=== PATIENT | female | born 1935 | race Two or more races ===

== ENCOUNTER 2023-03-23 19:23 | Emergency (ER) | payer OTHER, MEDICAID ==
[~2023-03-23] VITALS: Ht 152.4 cm; Wt 63.6 kg
[~2023-03-23 19:23] MED LIST: ATOR40TA28 PO; CALC-910 PO; GABA-1181 PO; MELA3TAB89 PO; METF-1211 PO; METO50 PO; MULT-660 PO; NITR0.4T52 SL; RIVA20TA PO; SERT-158 PO; SIMV-259 PO
[2023-03-23 19:52] LABS: BASOPHILS % (AUTO) 0.6 % (0.0-2.0); EOSINOPHILS % (AUTO) 3.1 % (1.0-6.0); HEMATOCRIT 41.3 % (36-46); HEMOGLOBIN 13.6 g/dL (12.0-16.0); LYMPHOCYTES % (AUTO) 22.5 % (22.0-44.0); MEAN CORPUSCULAR HEMOGLOBIN 31.3 pg (26.0-34.0); MEAN CORPUSCULAR HGB CONC 32.8 G/dL (31.0-37.0); MEAN CORPUSCULAR VOLUME 95 fL (80-100); MONOCYTES # (AUTO) 0.6 K/uL (0.1-1.0); MONOCYTES % (AUTO) 13.2 % (2.0-9.0); NEUTROPHILS # (AUTO) 2.8 K/uL (1.8-7.7); NEUTROPHILS % (AUTO) 60.6 % (40.0-70.0); PLATELET COUNT (AUTO) 192 K/uL (150-450); RED BLOOD CELL COUNT(AUTO) 4.34 MIL/uL (4.00-5.20); WHITE BLOOD COUNT (AUTO) 4.6 K/uL (4.5-11.0)
[2023-03-23 20:08] LABS: CALCIUM, TOTAL 9.3 mg/dL (8.8-10.5); CREATININE 1.03 mg/dL (0.60-1.30); POTASSIUM 4.5 mmol/L (3.5-5.1)
[2023-03-23 20:13] LABS: ALBUMIN 3.1 g/dL (3.4-5.0); BILIRUBIN,TOTAL 0.4 mg/dL (0.1-1.0); TOTAL PROTEIN, SERUM 7.4 g/dL (6.4-8.2)
[2023-03-23] MEDS ORDERED: FAMOTIDINE 20 MG/2 ML VIAL IVP ONE (20:15)
[2023-03-23] MEDS ORDERED: ACETAMINOPHEN 500 MG TABLET PO ONE (20:15)
[2023-03-23] MEDS ORDERED: ONDANSETRON HCL 4 MG/2 ML VIAL IVP ONE (20:15)
[2023-03-23 20:16] LABS: TROPONIN I-HIGH SENSITIVITY 15 ng/L (<51)
[2023-03-23] MEDS ORDERED: IOHEXOL 350 MG/ML 100 ML VIAL ONE (21:00)
[2023-03-23] MEDS ORDERED: SODIUM CHLORIDE 0.9% 100 ML ONE (21:00)
[2023-03-23 22:00] LABS: APPEARANCE,URINE CLEAR (CLEAR); BILIRUBIN,URINE NEGATIVE (NEGATIVE); COLOR,URINE YELLOW (YELLOW); GLUCOSE, URINE (UA) NEGATIVE (NEGATIVE); KETONES,URINE NEGATIVE (NEGATIVE); LEUKOCYTE ESTERASE ,URINE TRACE (NEGATIVE); NITRATE,URINE NEGATIVE (NEGATIVE); OCCULT BLOOD,URINE SMALL (NEGATIVE); PROTEIN,URINE 30-70 mg/dL (NEGATIVE); SPECIFIC GRAVITIY, URINE 1.026 (1.003-1.030); UROBILINOGEN,URINE <=1.0 mg/dL (<=1.0)
[2023-03-23 22:30] VITALS: BP 134/74; PULSE 74; RESP 18; TEMP 97.3
[2023-03-23 22:31] LABS: CALCIUM PHOSPHATE CRYSTALS,UR Few /LPF (None Seen)
[2023-03-23] MEDS ORDERED: CEPH-558 PO (22:32)
[2023-03-23 22:33] LABS: BACTERIA,URINE None Seen /HPF (None Seen); WBC,URINE 0-2 /HPF (0-5)
[2023-03-23] MEDS ORDERED: CEPHALEXIN MONOHYDRATE 500 MG CAPSULE PO ONE (22:45)
== END 2023-03-23 23:34 | disposition home or self-care (01) ==
LOC: EMS 19:25
DX: N39.0 Urinary tract infection, site not specified (principal); R10.31 Right lower quadrant pain; I10 Essential (primary) hypertension; Z98.890 Other specified postprocedural states
CPT/HCPCS: 99285; 74177; 96374; 96375; 80053; 81001; 83690; 84484; 85025; 36415; 93005; J3490; J2405; Q9967; J7050